=== PATIENT | female | born 1960 | race Caucasian/White ===

== ENCOUNTER → 2021-03-16 | Day surgery (SDC) | payer OTHER ==
--- NOTE | 2021-03-17 15:34 | RAD REPORT ---
EXAM DESCRIPTION: US - Breast Core BX w/US Guidance - 03/16/2021 9:41 am CLINICAL HISTORY: R92.8, 6 mm lateral right breast mass COMPARISON: Mammogram February 02, 2021, ultrasound March 01, 2021 TECHNIQUE: The patient presents for ultrasound-guided biopsy of a previously detailed 6 mm lobulated hypoechoic mass abutting the chest wall 9 o'clock right breast. The ultrasound-guided core biopsy procedure, risks and alternatives were discussed with the patient i n detail. After answering all questions, both oral and written consent were obtained. Time out proced ure was performed. The patient had no contraindicated allergy or medication history detailed at the i nitiation of the procedure. Preliminary imaging identified the lateral right breast mass. The lateral right breast was prepped an d draped in the usual sterile fashion. From an inferior and slightly lateral approach, skin and deepe r tissues were anesthetized with 1% lidocaine. Injection of lidocaine at the deep margin of the mass failed to elevate the mass off of the close chest wall proximity. It was determined at the time of th e procedure that the 14 gauge vacuum needle could not be safely used. Under direct sonographic visualization a a 17 gauge introducer needle was advanced and placed at the margin of the mass. An 18 gauge biopsy needle was advanced and placed at the inferior and slightly la teral margin of the mass. There were a total of 4 core biopsies obtained under direct sonographic bere dance. The second and fourth biopsies did appear to pass through the mass. The first and third biopsi es were along the margin of the mass. The mass did appear to have distortion in contour supporting tr ansit of the biopsy needle through the small mass. The mass was more difficult to identify at the con clusion of the procedure. Placement of a post biopsy needle localization clip was intended. Just prior to placement in discussi on with the patient, she indicated an allergy to nickel. The patient also indicated that she has stro ng allergic reactions. The localization clip packaging indicated that the clip was stainless steel. S juani steel is generally a metal alloy that does contain nickel. The specific alloy composition fo r this localization clip was not known. Therefore, the clip was not placed to ovoid any possible yashira rgic reaction. The mass in question is 4 cm from the nipple in the 10 o'clock position. Post biopsy imaging showed no hematoma or measurable bleeding within the breast. Hemostasis was obtai deanna at the skin site with a sterile bandage placed. Post procedure care and precaution instructions were given to the patient. IMPRESSION: 1. Ultrasound-guided core biopsy was performed of the lateral right breast mass. All obt ained material was given to pathology for histologic assessment. 2. Due to possible allergy to the nickel within the stainless steel localization clip, no clip was pl aced. 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 The pre biopsy characteristics of the mass were considered suspicious enough to warrant this procedure. As noted, the mass was difficult to biopsy due to size and proximity to the chest wall. T he mass did appear smaller in size and distorted in shape compared to the pre biopsy appearance. This would suggest that the mass was sampled during the biopsy. However, given the pre biopsy level of millard spicion, a diagnosis of fibrovascular adipose tissue could also mean only the tissue immediately kimmy cent to the mass was sampled. Therefore, follow-up of this breast finding is needed. Sonographic re-evaluation of the breast in 4-6 months could be performed to determine if the mass is still identifiable, grown and/or continues to appear suspicious. If there is a more immediate patient or physician desire for surgical excision of the mass, limited right breast sonography should be performed on a day prior to the surgical date to determine if the mass still visible for needle localization. Contrast-enhanced breast MRI is also a consideration. However, this examination can be challenging to obtain insurance approval. Additionally, the small size of the mass can be difficult to detect or di stinguish from background signal and enhancement. If this pathway is selected, a delay at least 1 mon th would be recommended to allow healing of any tissue injured by a the normal course of the biopsy. This would preclude any false-positive signal or enhancement that is related to the biopsy procedure rather than any possible malignancy.
== END ==
LOC: DS 09:15
PROVIDERS: ATTEND Obstetrics & Gynecology
DX: R92.8 Other abnormal and inconclusive findings on diagnostic imaging of breast (principal)
CPT/HCPCS: 19083; 88305